=== PATIENT | male | born 1950 | race Caucasian/White ===

== ENCOUNTER → 2020-01-25 | Emergency (ER) | payer MEDICARE | END | disposition left against medical advice (07) | LOC: ER 11:38 | DX: N28.9 Disorder of kidney and ureter, unspecified (principal) ==

== ENCOUNTER 2020-02-06 12:59 | Emergency (ER) | payer MEDICARE ==
[~2020-02-06] VITALS: Ht 180.3 cm; Wt 115.7 kg
[2020-02-06] MEDS ORDERED: SODIUM CHLORIDE 0.9% 1000ML 1,000 ML IV SCH (14:30)
[2020-02-06 14:42] LABS: EOSINOPHILS % 0.2 % (0.0-6.0); HEMATOCRIT 38.2 % (38.2-49.6); HEMOGLOBIN 12.8 g/dL (14.0-18.0); LYMPHOCYTES # (AUTO) 0.9 (1.0-3.2); LYMPHOCYTES % 20.8 % (18.0-39.1); MEAN CORPUSCULAR HEMOGLOBIN 29.6 pg (28-32); MEAN CORPUSCULAR HGB CONC 33.5 g/dL (31-35); MEAN CORPUSCULAR VOLUME 88.4 fL (81-99); MONOCYTES # (AUTO) 0.6 (0.2-0.8); MONOCYTES % 13.9 % (4.4-11.3); NEUTROPHILS # (AUTO) 2.6 (2.1-6.9); NEUTROPHILS % 64.6 % (38.7-80.0); PLATELET COUNT 109 x10e3/uL (140-360); RED BLOOD COUNT 4.32 x10e6/uL (4.3-5.7); RED CELL DISTRIBUTION WIDTH 12.7 % (11.7-14.4)
[2020-02-06 14:49] LABS: CLARITY,URINE CLEAR (CLEAR); COLOR,URINE YELLOW (YELLOW); LEUKOCYTE ESTERASE ,URINE NEGATIVE (NEGATIVE); NITRITE,URINE NEGATIVE (NEGATIVE); PROTEIN,URINE DIPSTICK 1+ (NEGATIVE)
[2020-02-06 14:50] LABS: KETONES,URINE TRACE (NEGATIVE); URINE UROBILINOGEN 1 mg/dL (0.2 - 1)
[2020-02-06 14:53] LABS: INR 1.14; PROTHROMBIN TIME 15.2 seconds (11.9-14.5)
[2020-02-06 15:01] LABS: BACTERIA,URINE FEW /HPF; RBC,URINE 0-5 /HPF (0-5)
[2020-02-06 15:02] LABS: HYALINE CASTS 0-1 (0-1)
[2020-02-06 15:03] LABS: MUCUS,URINE MODERATE (RARE)
[2020-02-06 15:03] LABS: ALANINE AMINOTRANSFERASE 20 IU/L (0-55); ALBUMIN 2.9 g/dL (3.5-5.0); ALBUMIN/GLOBULIN RATIO 0.9 (0.8-2.0); ALKALINE PHOSPHATASE 59 IU/L (40-150); ANION GAP 13.8 mmol/L (8-16); BLOOD UREA NITROGEN 17 mg/dL (7-26); BUN/CREATININE RATIO 19 (6-25); CALCIUM 7.8 mg/dL (8.4-10.2); CARBON DIOXIDE 20 mmol/L (22-29); CHLORIDE 100 mmol/L (98-107); EST GLOMERULAR FILTRATION RATE > 60 ML/MIN (60-); GLUCOSE 93 mg/dL (74-118); POTASSIUM 3.8 mmol/L (3.5-5.1); SODIUM 130 mmol/L (136-145)
[2020-02-06 15:04] LABS: EPITHELIAL CELLS,URINE RARE /LPF
[2020-02-06 15:43] LABS: THYROID STIMULATING HORMONE 1.08 uIU/mL (0.350-4.940)
[2020-02-14] MEDS ORDERED: ATENOLOL50 MG (14:13)
[2020-02-14] MEDS ORDERED: ELIQUIS5 MG (14:13)
== END 2020-02-06 16:02 | disposition home or self-care (01) ==
LOC: ER 13:37
DX: R53.83 Other fatigue (principal); R42 Dizziness and giddiness; Z85.46 Personal history of malignant neoplasm of prostate
CPT/HCPCS: 36415; 71045; 80053; 81001; 83880; 84443; 84484; 85025; 85610; 93005; 99284